=== PATIENT | male | born 1945 | race Caucasian/White ===

== ENCOUNTER 2023-01-31 08:17 | Day surgery (SDC) | payer MEDICARE ==
[~2023-01-31] VITALS: Ht 182.9 cm; Wt 81.8 kg
[2023-01-31 08:30] VITALS: BP 162/85
[2023-01-31] MEDS ORDERED: fentaNYL/PF 50MCG/1 ML 2ML syringe ONE (08:41)
[2023-01-31] MEDS ORDERED: MIDAZolam 1 MG/ML 5ML VIAL ONE (08:41)
[2023-01-31] MEDS ORDERED: HYDR25TA5 PO (08:57)
[2023-01-31] MEDS ORDERED: BENA40TA73 PO (08:57)
[2023-01-31] MEDS ORDERED: OMEP20TA23 PO (08:57)
[2023-01-31] MEDS ORDERED: ATOR10TA70 PO (08:57)
[2023-01-31] MEDS ORDERED: METO-384 PO (08:57)
[2023-01-31] MEDS ORDERED: SULF500T46 PO (08:57)
[2023-01-31 09:35] VITALS: BP 162/85
[2023-01-31 09:45] VITALS: BP 150/76
[2023-01-31 09:55] VITALS: BP 138/80
[2023-01-31 10:05] VITALS: BP 125/99
== END 2023-01-31 10:10 | disposition home or self-care (01) ==
LOC: GI LAB 08:17
PROVIDERS: ATTEND Specialist
DX: K51.90 Ulcerative colitis, unspecified, without complications (principal); I10 Essential (primary) hypertension; Z86.010 Personal history of colon polyps; Z79.899 Other long term (current) drug therapy
CPT/HCPCS: 45380; G0500; J2250; J3010; J7030; Z7512; 99152; A4620

== ENCOUNTER 2024-10-28 15:41 | Emergency (ER) | payer MEDICARE ==
[~2024-10-28] VITALS: Ht 154.9 cm; Wt 80.7 kg
[~2024-10-28 15:41] MED LIST: ATOR10TA70 PO; BENA40TA73 PO; HYDR25TA5 PO; METO-384 PO; OMEP20TA23 PO; SULF500T46 PO
[2024-10-28] MEDS: LIDOcaine 1% 30ml preserv. free vial IJ ONE ×2 (16:30→19:51)
[2024-10-28] MEDS: acetaminophen 325mg tablet PO ONE (17:19)
[2024-10-28] MEDS: TETanus/Pertussis (Acell)/Diphther VAC/PF (Tdap-Adult) 0.5ml syringe IMVAC ONE (17:20)
[2024-10-28] MEDS: diazepam 5mg tablet PO ONE (21:47)
[2024-10-28] MEDS: BUPIVAcaine/PF 2.5 mg/ml (0.25%) 30ml vial IJ ONE (22:02)
[2024-10-28] MEDS: ketorolac trometh 15mg/ml vial 15 MG/ML ML IM ONE (23:32)
[2024-10-29] MEDS ORDERED: CIPR-259 PO (00:11)
[2024-10-29] MEDS ORDERED: HYDR-3965 PO (00:11)
[2024-10-29] MEDS: HYDROcodone/acetaminophen 5mg/325mg tablet PO ONE (00:25)
[2024-10-29 00:28] VITALS: BP 103/47; PULSE 108; RESP 14; TEMP 98.3; O2SAT 97
== END 2024-10-29 00:30 | disposition home or self-care (01) ==
LOC: ER 15:42
DX: S01.312A Laceration without foreign body of left ear, initial encounter (principal); Z79.899 Other long term (current) drug therapy; W01.0XXA Fall on same level from slipping, tripping and stumbling without subsequent striking against object, initial encounter; Y93.89 Activity, other specified; Y92.89 Other specified places as the place of occurrence of the external cause; Y99.8 Other external cause status
CPT/HCPCS: 12002; 70450; 72125; 90715; 96372; 99285; A4330; A6253; A6258; A6402; A6446; G0008; J1885; Z7610; 90471; A6449